=== PATIENT | male | born 1940 | race Caucasian/White ===

== ENCOUNTER 2017-06-06 12:45 | Emergency (ER) | payer SELFPAY ==
--- NOTE | 2017-06-06 15:04 | XRAY Preliminary Report ---
Exam: XR Hand 3 View LT IMPRESSION: 1. Common, displaced intra-articular second proximal phalanx fracture. 2. Mildly comminuted and very mildly displaced intra-articular thumb distal phalanx fracture. 3. Soft tissue gas with index and thumb soft tissue laceration and deformity, consistent with open fr actures. [facility] SITE ID: [id number]
--- NOTE | 2017-06-06 15:06 | XRAY Report ---
EXAM: LEFT HAND RADIOGRAPHY EXAM DATE: 06/06/2017 02:52 PM. CLINICAL HISTORY: Dog bite deep over the 2nd mCP. COMPARISON: None. TECHNIQUE: 3 views. FINDINGS: Bones: Comminuted, displaced intra-articular fracture of the base of the second digit proximal phalan x. Very mildly displaced and comminuted intra-articular fracture of the proximal and midportion of th e thumb distal phalanx. Joints: Mild first carpometacarpal and triscaphe joint degenerative disease. Soft Tissues: Soft tissue swelling and deformity involving the thumb and index fingers consistent wit h open fractures. Some soft tissue gas extends more proximally into the hand near the second metacarp al and between the second and third metacarpals. IMPRESSION: 1. Common, displaced intra-articular second proximal phalanx fracture. 2. Mildly comminuted and very mildly displaced intra-articular thumb distal phalanx fracture. 3. Soft tissue gas with index and thumb soft tissue laceration and deformity, consistent with open fr actures. [facility] Referring Provider Line: [phone] SITE ID: [id number]
--- NOTE | 2017-06-06 15:15 | ED Physician Documentation ---
PD HPI ANIMAL BITE - Stated complaint Stated Complaint: DOG BITE/SHOCK - Chief complaint Chief Complaint: Ext Problem - History obtained from History obtained from: Patient - History of Present Illness Location of injury(ies): Left hand, Multiple Details of the event: Dog, Bite, Pet animal, Not immunized, Provoked, Animal can be observed, Animal control notified Timing - onset: Yesterday Timing - duration: Days (1) Timing - details: Abrupt onset, Still present Improved by: Rest, Immobilization Worsened by: Moving, Palpating Associated symptoms: Swelling, Discolored. No: Weakness, Numbness, Tingling Contributing factors: No: Immunocompromised Similar symptoms before: Has not had sx before Recently seen: Not recently seen - Additional information Additional information: 77-year-old noncompliant male was attempting to give his dog a bath last night and the dog bit him in the hand. The patient has deep bites to the hand over the dorsum of the left distal metacarpal phalangeal area and over the left thumb. He has pain associated with this swelling and erythema. He has not had fever.He is able to flex and extend his fingers but has a significant amount of pain with doing this. Review of Systems Constitutional: denies: Fever Eyes: denies: Decreased vision Nose: denies: Congestion Throat: denies: Sore throat Cardiac: reports: Chest pain / pressure Respiratory: reports: Cough. denies: Dyspnea GI: denies: Abdominal Pain, Nausea, Vomiting : denies: Dysuria, Frequency Skin: denies: Rash Musculoskeletal: reports: Extremity pain, Joint pain, Extremity swelling, Joint swelling. denies: Neck pain, Back pain Neurologic: denies: Generalized weakness, Focal weakness, Numbness PD PAST MEDICAL HISTORY - Past Medical History Cardiovascular: [place] - Past Surgical History Past Surgical History: No - Present Medications Home Medications: Ambulatory Orders Medication Instructions Recorded Confirmed Amox/Clav 875/125 [Augmentin] 1 each PO Q12H #20 tablet 06/06/17 Sulfamethoxazole/Trimethoprim 1 each PO BID #20 tablet 06/06/17 [Sulfamethoxazole-Tmp Ds Tablet] - Allergies Allergies/Adverse Reactions: Allergies Allergy/AdvReac Type Severity Reaction Status Date / Time No Known Drug Allergies Allergy Verified 06/06/17 12:57 - Social History Does the pt smoke?: No Smoking Status: Never smoker - Immunizations Immunizations are current?: No PD ED PE NORMAL - Vitals Vital signs reviewed: Yes (tachy and hypertensive ) - General General: Alert and oriented X 3, No acute distress, Well developed/nourished, Other (The patient is dressed as a character from a historical movie -- 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 ) - HEENT HEENT: Atraumatic, PERRL, EOMI - Respiratory Respiratory: No respiratory distress - Derm Derm: Normal color, Warm and dry, No rash - Extremities Extremities: Other (There is swelling, erythema and tenderness to the dorsum of the left hand. Over the 2nd MCP there is a deep painful laceration that bleeds freely when the dressing is taken down. The MCP joint is tender but extension is preserved and distal n/v components are intact. There is a similar smaller laceration over the 1st IP joint. There is swelling to the dorsum of the hand with erythema extending to the distal forearm. ) - Neuro Neuro: Alert and oriented X 3, executive sales manager 2-12 intact, No motor deficit, No sensory deficit, Normal speech - Psych Psych: Normal mood, Normal affect Results - Vitals Vitals: Vital Signs - 24 hr / 12:56 Temperature 37.2 C Heart Rate 101 H Respiratory 18 Rate Blood Pressure 159/91 H O2 Saturation 99 Oxygen O2 Source Room air - Rads (name of study) left hand Radiology: Prelim report reviewed (Impression: 1. Comminuted, displaced intra- articular second proximal phalanx fracture.2. Mildly comminuted and very mildly displaced intra-articular thumb distal phalanx fracture.3. Soft tissue gas within index and thumb soft tissue laceration and deformity, consistent with open fractures.), EMP read indepedently, See rad report PD MEDICAL DECISION MAKING - ED course Complexity details: reviewed results, re-evaluated patient, considered differential, d/w patient ED course: 77-year-old male with deep dog bite wounds to his left index and thumb has comminuted open fractures associated with the bite. He has swelling and erythema to the dorsum of the hand consistent with early infection and he is refusing treatment. I have explained to the patient the nature of open fracture and problems with infection and osteomyelitis and potential complications associated with this and he refuses surgical intervention. He does appear competent and has made his decision and he states that he is stubborn. He refuses consultation with the orthopedic surgeon.He states "do not bother with having the surgeon come to the emergency department as I will refuse surgery".I did consult Marcos Nur by telephone regarding management of this and he recommends thorough irrigation with saline infused with Hibiclens and administration of Septra and Augmentin. He will be available for follow-up with the patient. The patient refuses tetanus immunization as well. The wound is thoroughly cleansed with 1 L of saline infused with 2 mL's of Hibiclens each.He is administered sulfamethoxazole trimethoprim double strength and Augmentin 875 here in the emergency department. Departure - Departure Disposition: Against Medical Advice Clinical Impression: Open hand fracture Qualifiers: Encounter type: initial encounter Laterality: left Qualified Code(s): S62.92XB - Unspecified fracture of left wrist and hand, initial encounter for open fracture Condition: Stable Instructions: ED Fx Hand Open Follow-Up: [facility] [Provider Group] Prescriptions: Amox/Clav 875/125 [Augmentin] 1 each PO Q12H #20 tablet Sulfamethoxazole/Trimethoprim [Sulfamethoxazole-Tmp Ds Tablet] 1 each PO BID # 20 tablet Comments: Today it appears you have open fractures to the thumb and index finger on the left hand and these are likely to get infected. The usual treatment for this is surgical debridement. This service is being offered to you here today and you are refusing this. This puts you at risk for more complications from infection. Take the antibiotic as prescribed and if you develop signs and symptoms of worsening infection return to the emergency department or follow-up with the doctors at the orthopedic clinic.
[2017-06-06] MEDS ORDERED: SULFAMETH/TRIMETH DS 800/160 MG TABLET PO STA (15:33)
[2017-06-06] MEDS ORDERED: AMOX/CLAV 875 MG/125 MG TABLET PO STA (15:33)
[2017-06-06] MEDS ORDERED: SULFAMETH/TRIMETH DS 800/160 MG TABLET PO ONE (15:36)
[2017-06-06] MEDS ORDERED: AMOX/CLAV 875 MG/125 MG TABLET PO ONE (15:36)
[2017-06-06 16:03] VITALS: BP 145/79
== END 2017-06-06 16:02 | disposition left against medical advice (07) ==
LOC: ED 12:45
DX: S62.611B Displaced fracture of proximal phalanx of left index finger, initial encounter for open fracture (principal); S62.522B Displaced fracture of distal phalanx of left thumb, initial encounter for open fracture; W54.0XXA Bitten by dog, initial encounter; Y93.K3 Activity, grooming and shearing an animal; Z91.19 Patient's noncompliance with other medical treatment and regimen; Z53.20 Procedure and treatment not carried out because of patient's decision for unspecified reasons
CPT/HCPCS: 29125; 73130; 99283; A9270

== ENCOUNTER 2017-07-27 11:52 | Emergency (ER) | payer MEDICAID ==
[2017-07-27] MEDS ORDERED: AMPICILLIN/SULBACTAM 3 GM in SODIUM CHLORIDE 0.9% MINIBAG 100 ML IV STA (14:16)
[2017-07-27] MEDS ORDERED: BUFFERED LIDOCAINE 10 ML SYRINGE SUBQ STA (14:16)
--- NOTE | 2017-07-27 14:19 | ED Physician Documentation ---
PD HPI ANIMAL BITE - Stated complaint Stated Complaint: RT HAND DOG BITE - Chief complaint Chief Complaint: Wound - History obtained from History obtained from: Patient - Additional information Additional information: Patient is a 77-year-old male who was bitten today by his large dog. He is also bitten last month and believes that this previous dog bite is infected. He was directed by the orthopedist to have surgery for what they thought was tenosynovitis however he refused. He was taking antibiotics for this previous wound of the left hand and left index finger however he says it is getting better. Today he was bitten in the right hand with several bites at the base of the carpometacarpal joint. His tetanus is up-to-date. Review of systems: For pertinent positive and negatives in the review of systems please see the history of present illness, otherwise all other systems have been reviewed and are negative. Dragon disclaimer: Parts of this medical record were created using voice recognition technology. Because of the inherent limitations of this system, occasional same sounding word substitutions do occur and persist despite proofreading. Please read the document for context. Review of Systems Constitutional: denies: Fever, Chills PD PAST MEDICAL HISTORY - Past Medical History Past Medical History: Yes Cardiovascular: [place] - Past Surgical History Past Surgical History: No - Present Medications Home Medications: Ambulatory Orders Medication Instructions Recorded Confirmed Amox/Clav 875/125 [Augmentin] 1 each PO Q12H #20 tablet 07/27/17 HYDROcod/ACETAM 5/325 [[place] 5/325] 1 - 2 ea PO Q6H PRN #15 tablet 07/27/17 - Allergies Allergies/Adverse Reactions: Allergies Allergy/AdvReac Type Severity Reaction Status Date / Time No Known Drug Allergies Allergy Verified 07/27/17 12:04 - Social History Does the pt smoke?: No Smoking Status: Never smoker Does the pt drink ETOH?: No Does the pt have substance abuse?: No - Immunizations Immunizations are current?: No - POLST Patient has POLST: No PD ED PE NORMAL - Vitals Vital signs reviewed: Yes - General General: Alert and oriented X 3, No acute distress, Well developed/nourished, Other (Tall elderly manner male in no apparent distress) - HEENT HEENT: Atraumatic, PERRL - Neck Neck: Supple, no meningeal sign - Cardiac Cardiac: RRR, No murmur - Respiratory Respiratory: No respiratory distress - Abdomen Abdomen: Normal bowel sounds - Derm Derm: Normal color - Extremities Extremities: Other (On examination of the left hand over the second distal metacarpal there is a large eschar that is malodorous. The index and middle finger of the left hand show evidence of chronic swelling probably from a previous mild tenosynovitis. On the right hand he has several deep bite wounds over the carpometacarpal joint of the first finger or thumb) Results - Vitals Vitals: Vital Signs - 24 hr 07/27/17 07/27/17 07/27/17 12:01 14:07 16:54 Temperature 36.6 C 36.8 C 36.4 C L Heart Rate 96 91 62 Respiratory 18 16 15 Rate Blood Pressure 161/89 H 168/96 H 169/77 H O2 Saturation 98 100 95 Oxygen O2 Source Room air - Labs Labs: Laboratory Tests 07/27/17 07/27/17 14:15 15:18 WBC 12.8 H RBC 4.70 Hgb 14.1 Hct 42.1 MCV 89.5 MCH 30.0 MCHC 33.5 RDW 13.6 Plt Count 271 MPV 8.3 Neut # 10.5 H Lymph # 0.7 L [place] # 1.5 H Eos # 0.0 Baso # 0.0 Absolute Nucleated RBC 0.00 Nucleated RBCs 0.0 Sodium 133 L Potassium 3.8 Chloride 97 L Carbon Dioxide 25 Anion Gap 11.0 BUN 9 Creatinine 0.7 Estimated GFR (MDRD) 110 Glucose 129 H Calcium 9.9 Total Bilirubin 1.5 H AST 20 ALT 17 Alkaline Phosphatase 105 Total Protein 7.6 Albumin 4.6 Globulin 3.0 Albumin/Globulin Ratio 1.5 Lipase 16 L PD MEDICAL DECISION MAKING - ED course Complexity details: reviewed old records, reviewed results, re-evaluated patient , d/w patient, d/w family, d/w inbound sales consultant ED course: Patient is a very stubborn 77-year-old male who has a healing dog bite on the left hand that is probably got a low-grade infection and has a suspected open fracture of the metacarpal phalangeal joint of the right thumb. Orthopedics was consulted and actually came down and saw the patient and debrided and irrigated him at the bedside and then splinted him. He was placed on intravenous Unasyn here and looks and feels better. Orthopedics will see him in the office this week. The patient will be placed on pain control and Augmentin orally and does agree to follow-up with orthopedics very soon I disposition: To home Clinical impression: 1. Acute dog bite right thumb with fracture of the proximal phalanx status post debridement and IV antibiotics 2. Smoldering infection of the left metacarpophalangeal area of his hand with healing infection with scarring consistent with previous tenosynovitis Departure - Departure Disposition: 01 Home, Self Care Clinical Impression: Animal bite with open wound, Open hand fracture Condition: Good Instructions: ED Bite Animal General, ED Fx Hand Open Follow-Up: Robert Baugh MD [Provider Admit Priv/Credential] - Prescriptions: Amox/Clav 875/125 [Augmentin] 1 each PO Q12H #20 tablet HYDROcod/ACETAM 5/325 [[place] 5/325] 1 - 2 ea PO Q6H PRN #15 tablet PRN Reason: Pain
[2017-07-27] MEDS ORDERED: LIDOCAINE 1% 2 ML VIAL ONE ×2 (14:40→16:18)
--- NOTE | 2017-07-27 15:21 | XRAY Preliminary Report ---
Exam: XR Hand 3 View RT IMPRESSION: 1. Displaced crush fracture involving the proximal two thirds first proximal phalanx with extensive a djacent edema and deep laceration. 2. Very faint ill-defined cloudlike densities in or on the overlying macerated soft tissues most like ly representing antiseptic solution or bandaging rather than actual displaced bone fracture fragments or canine tooth remnants. [facility] SITE ID: [id number]
[2017-07-27] MEDS ORDERED: BUFFERED LIDOCAINE 10 ML SYRINGE ONE (15:28)
--- NOTE | 2017-07-27 15:29 | XRAY Report ---
EXAM: RIGHT HAND RADIOGRAPHY EXAM DATE: 07/27/2017 02:41 PM. CLINICAL HISTORY: Large dog bit base right thumb. Pain, laceration. COMPARISON: None. TECHNIQUE: 3 views. FINDINGS: Bones: Acute comminuted displaced fracture involving the proximal two thirds first proximal phalanx, with intraarticular extension. Several faint 10 mm and smaller cloud-like vague densities in the soft tissues overlying this region consistent with either antiseptic solutions, less likely bone fragment s. Joints: Normal. No subluxations. Soft Tissues: Deep laceration base of the thumb, level with the epicenter of the crush fracture. Gustavo ed edema at the fracture site and also involving the thenar eminence. IMPRESSION: 1. Displaced crush fracture involving the proximal two-thirds first proximal phalanx with extensive a djacent edema and deep laceration. 2. Very faint ill-defined cloudlike densities in or on the overlying macerated soft tissues most like ly representing antiseptic solution or bandaging rather than actual displaced bone fracture fragments or canine tooth remnants. [facility] Referring Provider Line: [phone] SITE ID: [id number]
[2017-07-27 15:47] LABS: BASOPHILS % (AUTO) 0.1 %; HCT - HEMATOCRIT 42.1 % (42.0-52.0); HGB - HEMOGLOBIN 14.1 g/dL (14.0-18.0); LYMPHOCYTES # (AUTO) 0.7 10^3/uL (1.5-3.5); LYMPHOCYTES % (AUTO) 5.7 %; MEAN CORPUSCULAR HGB CONC 33.5 g/dL (32.0-36.0); MEAN CORPUSCULAR VOLUME 89.5 fL (80.0-94.0); MEAN PLATELET VOLUME 8.3 fL (7.4-11.4); MONOCYTES # (AUTO) 1.5 10^3/uL (0.0-1.0); NEUTROPHILS # (AUTO) 10.5 10^3/uL (1.5-6.6); NEUTROPHILS % (AUTO) 82.2 %; RED CELL DISTRIBUTION WIDTH 13.6 % (12.0-15.0); UNCORRECTED WHITE BLOOD COUNT 12.8 x10^3/uL; WHITE BLOOD COUNT 12.8 x10^3/uL (4.8-10.8)
[2017-07-27 15:56] LABS: ALBUMIN/GLOBULIN RATIO 1.5 (1.0-2.2); BILIRUBIN,TOTAL 1.5 mg/dL (0.2-1.0); CALCIUM 9.9 mg/dL (8.5-10.3); CREATININE 0.7 mg/dL (0.6-1.2); POTASSIUM 3.8 mmol/L (3.5-5.0); TOTAL PROTEIN 7.6 g/dL (6.7-8.2)
[2017-07-27] MEDS ORDERED: BUPIVACAINE 0.25% PF 30 ML VIAL ONE (16:17)
[2017-07-27] MEDS ORDERED: HYDROcod/ACET 5/325 Prepack 6 PO STA (17:47)
[2017-07-27] MEDS ORDERED: IBUPROFEN 600 MG TABLET PO STA (17:57)
[2017-07-27 18:01] VITALS: BP 173/92
[2017-07-27] MEDS ORDERED: IBUPROFEN 600 MG TABLET PO ONE (18:02)
--- NOTE | 2017-07-27 18:23 | CONSULTATION NOTE ---
DATE OF CONSULTATION: 07/27/2017 00:00:00 REQUESTING PROVIDER: Dr. Garcia. HISTORY OF PRESENT ILLNESS: The patient is a 77-year-old male who has previously been in the emergenc y room within the last month having sustained a severe dog bite injury of his left hand with a dog th at has variously been described [place]. The patient denied me dical care on his last visit to the ER and has gone on to slowly granulate in what appeared to be a p erforating injury of his left hand at the index metacarpophalangeal joint with stiffness and some res idual swelling. With the patient continuing at this time to decline treatment for that injury, but ye sterday he sustained another dog bite injury by the same pet, the galarza dog causing a severe injury of the proximal phalanx of his right thumb with a comminuted fracture and soft tissue injury. The patie nt used THC products overnight for pain control and presented to the [facility] and ultimately javi gale referred [place] to the emergency room for treatment with pain and inability to use his thumb. Th e patient does not complain of fevers or sweats or chills and he specifically desires no treatment of his left hand and no surgery of his right hand. His prior medical history is documented by the ER ph ysician. The patient's right hand reveals puncture wounds and gashes that surround the thumb at the M P joint level. The patient initially was too painful to move his thumb, but after a block of lidocain e and Marcaine including a median nerve block, the patient had adequate anesthesia to demonstrate kassie t he had intact flexion, extension function and prior to the block he had intact sensory feeling in h is thumb. The patient's remaining hand did not show penetrating wounds or skin loss. IMPRESSION: The patient has a comminuted open fracture of the first metacarpal involving severe commi nution of the base of the bone now at 24 hours post-injury. The patient is requesting minimalist appr oach to surgery and he wanted simply a cast applied. After discussion with him, he was talking into h aving the block that was performed, and then talked into having a thorough irrigation of his wounds w hich was performed with the help of a cctv technician, Jaye, from the hospitals operating room. Once this was completed, the patient was splinted in a thumb spica splint with Xeroform dressings on his wound s. The plan postdebridement was for the patient to be on oral antibiotics, to have his splint left intac t and to return to the orthopedic clinic within 48 hours. The patient was made fully aware of the gra vity of his injury and that it could potentially lead to infection and the possibility of loss of his thumb or even his left index finger, which he is neglecting to treat as well. It is the patient's ch oice to have this treatment as is without any pinning or formal debridement and he will return to [facility] clinic in 48 hours and care will be managed from that point forward with further intervention if the patient will allow. JOB #: [id number] EXT JOB #:[id number]
== END 2017-07-27 18:24 | disposition home or self-care (01) ==
LOC: ED 11:52
DX: S62.511B Displaced fracture of proximal phalanx of right thumb, initial encounter for open fracture (principal); L08.9 Local infection of the skin and subcutaneous tissue, unspecified; W54.0XXA Bitten by dog, initial encounter; I25.2 Old myocardial infarction
CPT/HCPCS: 36415; 73130; 80053; 83690; 85025; 87070; 87077; 87181; 87205; 96374; 99283; 99284; A9270